=== PATIENT | male | born 1960 ===

== ENCOUNTER 2021-12-21 19:18 | Inpatient (IN) | payer OTHER ==
[~2021-12-21 19:18] MED LIST: Iopamidol 370 76% 100 ML VIAL ONE
[2021-12-21] MEDS ORDERED: Lidocaine 1% (PF) 30 ML VIAL ONE (19:25)
[2021-12-21] MEDS ORDERED: Heparin 10,000 UNITS/ 10 ML VIAL ONE (19:25)
[2021-12-21 19:42] LABS: #Basophils 0.1 thou/uL (0.0-0.2); #Eosinphils 0.1 thou/uL (0.0-0.7); #Lymphocytes 2.5 thou/uL (1.20-3.40); #Monocytes 0.6 thou/uL (0.11-0.59); #Neutrophils 2.5 thou/uL (1.40-6.50); %Basophils 1.3 % (0.0-1.0); %Eosinophils 2.2 % (0.0-10.0); %Lymphocytes 42.8 % (21.0-51.0); %Monocytes 10.1 % (0.0-10.0); %Neutrophils 43.6 % (42.0-75.0); Hemoglobin 13.3 g/dL (14.0-18.0); Mean Corpuscular HGB CONC 35.3 g/dL (32.0-36.0); Mean Corpuscular Hemoglobin 33.1 pg (27.0-31.0); Mean Corpuscular Volume 93.8 fL (78.0-98.0); Mean Platelet Volume 6.4 fL (7.4-10.4); Platelet Count 244 thou/uL (130-400); RBC Distribution Width 12.1 % (11.5-14.5); Red Blood Cell (RBC) Count 4.01 mill/uL (4.70-6.10); White Blood Cell (WBC) Count 5.8 thou/uL (4.8-10.8)
[2021-12-21] MEDS ORDERED: Fentanyl 100 MCG/2 ML VIAL ONE (19:49)
[2021-12-21] MEDS ORDERED: Nitroglycerin 100MG/250ML BOT 0 ML ONE (19:55)
[2021-12-21] MEDS ORDERED: Midazolam HCl 2 mg/2 ml Vial ONE (19:58)
[2021-12-21 20:03] LABS: Albumin 4.3 g/dL (3.5-5.0)
[2021-12-21 20:04] LABS: Chloride 107 mmol/L (98-107); Potassium 4.8 mmol/L (3.5-5.1); Sodium 139 mmol/L (136-145)
[2021-12-21 20:05] LABS: Calcium 9.4 mg/dL (7.8-10.44)
[2021-12-21 20:06] LABS: Globulin 3.4 g/dL (2.4-3.5); Glucose 91 mg/dL (70-105); Protein, Total 7.7 g/dL (6.0-8.3)
[2021-12-21 20:07] LABS: Anion Gap 18 mmol/L (10-20); Bilirubin, Total 0.3 mg/dL (0.2-1.2); Carbon Dioxide 19 mmol/L (22-29)
[2021-12-21 20:08] LABS: Alkaline Phosphatase 174 U/L (40-110)
[2021-12-21 20:09] LABS: Calc. Creatinine Clearance 0 mL/min (70-130)
[2021-12-21 20:10] LABS: BUN (Urea Nitrogen) 20 mg/dL (8.4-25.7)
[2021-12-21 20:11] LABS: AST (SGOT) 25 U/L (5-34)
[2021-12-21 20:12] LABS: ALT (SGPT) 16 U/L (8-55)
[2021-12-21] MEDS ORDERED: Morphine 4 MG/ML VIAL ONE (20:14)
[2021-12-21 20:22] LABS: CKMB 3.6 ng/mL (0-6.6)
[2021-12-21 20:31] LABS: SARS-CoV-2 NAA Rapid Test Not Detected (NotDetected)
[2021-12-21] MEDS ORDERED: Sodium Chloride 0.9% 200 ML IV PRN (20:32)
[2021-12-21] MEDS ORDERED: Milk Of Magnesia 30 ML UDCUP PO PRN (20:33)
[2021-12-21] MEDS ORDERED: traMADol HCl 50 MG TAB PO PRN (20:33)
[2021-12-21] MEDS ORDERED: Mag-Al 1200 mg/1200 mg/30 ML UDCUP PO PRN (20:33)
[2021-12-21] MEDS ORDERED: Zolpidem Tartrate 5 MG TAB PO PRN (20:33)
[2021-12-21 20:39] LABS: Prothrombin Time 13.6 sec (12.0-14.7)
[2021-12-21 20:41] LABS: PTT 114.9 sec (22.9-36.1)
[2021-12-21] MEDS ORDERED: Sodium Chloride 0.9% 500 ML IV SCH (20:45)
[2021-12-21] MEDS ORDERED: Clopidogrel Bisulfate 300 MG TAB PO SCH (20:45)
[2021-12-21] MEDS ORDERED: Atorvastatin Calcium 40 MG TAB PO SCH (21:00)
[2021-12-21 21:44] LABS: Troponin I 0.034 ng/mL (< 0.028)
[2021-12-21] MEDS: cloNIDine 0.1 MG TAB PO PRN (22:22)
[2021-12-21] MEDS: Atorvastatin Calcium 40 MG TAB PO SCH (22:34)
[2021-12-21] MEDS: Nitroglycerin 0.4 MG TAB (25 Tab Bottle) SL PRN (22:34)
[2021-12-21] MEDS: Docusate 100 MG CAP PO SCH (22:34)
[2021-12-22] MEDS: Morphine 2 MG/ML VIAL SLOW IVP PRN ×2 (00:44→19:40)
[2021-12-22] MEDS: Ondansetron PF 4 MG/2 ML Vial IVP PRN (02:24)
[2021-12-22 04:04] LABS: ALT (SGPT) 14 U/L (8-55); AST (SGOT) 19 U/L (5-34); Alkaline Phosphatase 157 U/L (40-110); Anion Gap 13 mmol/L (10-20); BUN (Urea Nitrogen) 17 mg/dL (8.4-25.7); Bilirubin, Total 0.3 mg/dL (0.2-1.2); Calc. Creatinine Clearance 113 mL/min (70-130); Calcium 9.3 mg/dL (7.8-10.44); Carbon Dioxide 22 mmol/L (22-29); Chloride 106 mmol/L (98-107); Globulin 3.2 g/dL (2.4-3.5); Glucose 111 mg/dL (70-105); Potassium 4.3 mmol/L (3.5-5.1); Protein, Total 7.2 g/dL (6.0-8.3); Sodium 137 mmol/L (136-145)
[2021-12-22 04:07] LABS: CKMB 3.3 ng/mL (0-6.6); Troponin I 0.031 ng/mL (< 0.028)
[2021-12-22] MEDS: Acetaminophen/Codeine 30-300mg Tablet PO PRN ×3 (04:36→22:38)
[2021-12-22 05:12] VITALS: BMI 39.6
[2021-12-22] MEDS: Carvedilol 3.125 MG TAB PO SCH ×2 (07:41→17:44)
[2021-12-22] MEDS: cloNIDine 0.1 MG TAB PO PRN (07:41)
[2021-12-22] MEDS ORDERED: Carvedilol 3.125 MG TAB PO SCH (08:00)
[2021-12-22 08:15] LABS: #Eosinphils 0.1 thou/uL (0.0-0.7); #Lymphocytes 1.8 thou/uL (1.20-3.40); #Monocytes 0.6 thou/uL (0.11-0.59); #Neutrophils 3.5 thou/uL (1.40-6.50); %Basophils 0.5 % (0.0-1.0); %Eosinophils 1.4 % (0.0-10.0); %Lymphocytes 29.7 % (21.0-51.0); %Monocytes 9.2 % (0.0-10.0); %Neutrophils 59.1 % (42.0-75.0); Hemoglobin 13.3 g/dL (14.0-18.0); Mean Corpuscular HGB CONC 32.7 g/dL (32.0-36.0); Mean Corpuscular Hemoglobin 31.5 pg (27.0-31.0); Mean Corpuscular Volume 96.5 fL (78.0-98.0); Mean Platelet Volume 6.2 fL (7.4-10.4); Platelet Count 194 thou/uL (130-400); Red Blood Cell (RBC) Count 4.22 mill/uL (4.70-6.10)
[2021-12-22] MEDS ORDERED: Lisinopril 2.5 MG TAB PO SCH (09:00)
[2021-12-22] MEDS ORDERED: Clopidogrel Bisulfate 75 MG TAB PO SCH (09:00)
[2021-12-22] MEDS: Enoxaparin Sodium 40 MG/0.4 ML SYRINGE SC SCH (09:20)
[2021-12-22] MEDS: Amlodipine 10 MG TAB PO SCH (09:20)
[2021-12-22] MEDS: Aspirin Chewable 81 MG TAB PO SCH (09:20)
[2021-12-22] MEDS: Docusate 100 MG CAP PO SCH ×2 (09:21→21:26)
[2021-12-22] MEDS: Allopurinol 300 MG TAB PO SCH (09:21)
[2021-12-22] MEDS: Nitroglycerin 0.4 MG TAB (25 Tab Bottle) SL PRN (19:31)
[2021-12-22] MEDS: Atorvastatin Calcium 40 MG TAB PO SCH (21:26)
[2021-12-23] MEDS: Morphine 2 MG/ML VIAL SLOW IVP PRN ×3 (02:33→18:40)
[2021-12-23 04:35] LABS: #Eosinphils 0.1 thou/uL (0.0-0.7); #Lymphocytes 1.8 thou/uL (1.20-3.40); #Monocytes 0.5 thou/uL (0.11-0.59); #Neutrophils 2.2 thou/uL (1.40-6.50); %Basophils 0.6 % (0.0-1.0); %Eosinophils 2.3 % (0.0-10.0); %Lymphocytes 38.6 % (21.0-51.0); %Neutrophils 47.5 % (42.0-75.0); Mean Corpuscular Hemoglobin 32.3 pg (27.0-31.0); Mean Corpuscular Volume 94.9 fL (78.0-98.0); Mean Platelet Volume 6.3 fL (7.4-10.4); Platelet Count 184 thou/uL (130-400); RBC Distribution Width 11.9 % (11.5-14.5); Red Blood Cell (RBC) Count 3.71 mill/uL (4.70-6.10); White Blood Cell (WBC) Count 4.7 thou/uL (4.8-10.8)
[2021-12-23 04:59] LABS: ALT (SGPT) 13 U/L (8-55); AST (SGOT) 15 U/L (5-34); Albumin 3.6 g/dL (3.5-5.0); Alkaline Phosphatase 142 U/L (40-110); Anion Gap 12 mmol/L (10-20); BUN (Urea Nitrogen) 18 mg/dL (8.4-25.7); Bilirubin, Total 0.4 mg/dL (0.2-1.2); Calc. Creatinine Clearance 104 mL/min (70-130); Calcium 8.8 mg/dL (7.8-10.44); Carbon Dioxide 25 mmol/L (22-29); Chloride 104 mmol/L (98-107); Globulin 2.7 g/dL (2.4-3.5); Glucose 88 mg/dL (70-105); Potassium 4.1 mmol/L (3.5-5.1); Protein, Total 6.3 g/dL (6.0-8.3); Sodium 137 mmol/L (136-145)
[2021-12-23] MEDS: Acetaminophen/Codeine 30-300mg Tablet PO PRN ×2 (07:35→20:36)
[2021-12-23] MEDS: Enoxaparin Sodium 40 MG/0.4 ML SYRINGE SC SCH (08:57)
[2021-12-23] MEDS: Allopurinol 300 MG TAB PO SCH (08:57)
[2021-12-23] MEDS: Docusate 100 MG CAP PO SCH ×2 (08:57→20:36)
[2021-12-23] MEDS: Aspirin Chewable 81 MG TAB PO SCH (08:57)
[2021-12-23] MEDS: Amlodipine 10 MG TAB PO SCH (08:57)
[2021-12-23] MEDS: Carvedilol 3.125 MG TAB PO SCH ×2 (08:57→16:18)
[2021-12-23 11:59] LABS: Bacteria/HPF None Seen HPF (None Seen); Bilirubin Negative (Negative); Blood, Urine Negative (Negative); Clarity Clear (Clear); Glucose, Urine (Dipstick) Normal (Negative); Ketone, Urine Negative (Negative); Leukocyte Negative Leu/uL (Negative); Nitrite Negative (Negative); Protein, Urine (Dipstick) Negative (Neg-Trace); RBC/HPF 0-3 HPF (0-3); Specific Gravity, Urine 1.019 (1.002-1.036); Squamous Epithelial None Seen HPF (0-3); Urobilinogen Normal mg/dL (Less than 2); WBC/HPF 0-3 HPF (0-3)
[2021-12-23 12:01] LABS: Urine Culture Reflex No No
[2021-12-23 12:06] LABS: Lactic Acid 1.3 mmol/L (0.5-2.2)
[2021-12-23 12:16] LABS: Iron 75 ug/dL (65-175); Iron Binding Capacity, Total 298 mcg/dL (261-462); Lipase 27 U/L (8-78)
[2021-12-23] MEDS: Dicyclomine 20 MG TAB PO SCH ×3 (12:19→20:36)
[2021-12-23] MEDS: Atorvastatin Calcium 40 MG TAB PO SCH (20:36)
[2021-12-24 04:49] LABS: #Eosinphils 0.1 thou/uL (0.0-0.7); #Lymphocytes 2.1 thou/uL (1.20-3.40); #Monocytes 0.6 thou/uL (0.11-0.59); %Basophils 0.7 % (0.0-1.0); %Eosinophils 2.9 % (0.0-10.0); %Lymphocytes 43.1 % (21.0-51.0); %Monocytes 11.6 % (0.0-10.0); %Neutrophils 41.7 % (42.0-75.0); Hemoglobin 11.9 g/dL (14.0-18.0); Mean Corpuscular HGB CONC 34.3 g/dL (32.0-36.0); Mean Corpuscular Hemoglobin 32.4 pg (27.0-31.0); Mean Corpuscular Volume 94.3 fL (78.0-98.0); Mean Platelet Volume 6.3 fL (7.4-10.4); Platelet Count 181 thou/uL (130-400); RBC Distribution Width 11.9 % (11.5-14.5); Red Blood Cell (RBC) Count 3.69 mill/uL (4.70-6.10); White Blood Cell (WBC) Count 4.9 thou/uL (4.8-10.8)
[2021-12-24 05:09] LABS: ALT (SGPT) 11 U/L (8-55); AST (SGOT) 14 U/L (5-34); Albumin 3.7 g/dL (3.5-5.0); Alkaline Phosphatase 138 U/L (40-110); Anion Gap 10 mmol/L (10-20); BUN (Urea Nitrogen) 18 mg/dL (8.4-25.7); Bilirubin, Total 0.3 mg/dL (0.2-1.2); Calc. Creatinine Clearance 102 mL/min (70-130); Calcium 9.1 mg/dL (7.8-10.44); Carbon Dioxide 26 mmol/L (22-29); Chloride 104 mmol/L (98-107); Globulin 2.8 g/dL (2.4-3.5); Glucose 88 mg/dL (70-105); Potassium 4.2 mmol/L (3.5-5.1); Protein, Total 6.5 g/dL (6.0-8.3); Sodium 136 mmol/L (136-145)
[2021-12-24] MEDS: Acetaminophen/Codeine 30-300mg Tablet PO PRN ×5 (06:26→22:00)
[2021-12-24] MEDS: Enoxaparin Sodium 40 MG/0.4 ML SYRINGE SC SCH (08:48)
[2021-12-24] MEDS: Carvedilol 3.125 MG TAB PO SCH ×2 (08:49→17:43)
[2021-12-24] MEDS: Allopurinol 300 MG TAB PO SCH (08:49)
[2021-12-24] MEDS: Aspirin Chewable 81 MG TAB PO SCH (08:49)
[2021-12-24] MEDS: Amlodipine 10 MG TAB PO SCH (08:49)
[2021-12-24] MEDS: Dicyclomine 20 MG TAB PO SCH ×4 (08:50→20:33)
[2021-12-24] MEDS: Docusate 100 MG CAP PO SCH ×2 (08:50→21:56)
[2021-12-24] MEDS ORDERED: Iopamidol-370 76% 500 ML 1 ML ONE (10:50)
[2021-12-24] MEDS ORDERED: GASTROGRAFIN 30 ML BOT ONE (10:50)
[2021-12-24] MEDS: Atorvastatin Calcium 40 MG TAB PO SCH (20:33)
[2021-12-24] MEDS: Morphine 2 MG/ML VIAL SLOW IVP PRN (20:34)
[2021-12-25 04:57] LABS: #Eosinphils 0.1 thou/uL (0.0-0.7); #Lymphocytes 1.7 thou/uL (1.20-3.40); #Monocytes 0.5 thou/uL (0.11-0.59); %Basophils 0.6 % (0.0-1.0); %Eosinophils 2.7 % (0.0-10.0); %Lymphocytes 32.1 % (21.0-51.0); %Neutrophils 54.6 % (42.0-75.0); Hemoglobin 12.3 g/dL (14.0-18.0); Mean Corpuscular HGB CONC 33.7 g/dL (32.0-36.0); Mean Platelet Volume 6.1 fL (7.4-10.4); Platelet Count 203 thou/uL (130-400); Red Blood Cell (RBC) Count 3.83 mill/uL (4.70-6.10); White Blood Cell (WBC) Count 5.4 thou/uL (4.8-10.8)
[2021-12-25 05:30] LABS: ALT (SGPT) 17 U/L (8-55); AST (SGOT) 20 U/L (5-34); Albumin 4.1 g/dL (3.5-5.0); Alkaline Phosphatase 150 U/L (40-110); Anion Gap 11 mmol/L (10-20); BUN (Urea Nitrogen) 18 mg/dL (8.4-25.7); Bilirubin, Total 0.4 mg/dL (0.2-1.2); Calc. Creatinine Clearance 95 mL/min (70-130); Calcium 9.7 mg/dL (7.8-10.44); Carbon Dioxide 26 mmol/L (22-29); Chloride 102 mmol/L (98-107); Glucose 118 mg/dL (70-105); Potassium 3.9 mmol/L (3.5-5.1); Protein, Total 7.1 g/dL (6.0-8.3); Sodium 135 mmol/L (136-145)
[2021-12-25] MEDS: Docusate 100 MG CAP PO SCH ×2 (08:52→20:48)
[2021-12-25] MEDS: Amlodipine 10 MG TAB PO SCH (08:52)
[2021-12-25] MEDS: Allopurinol 300 MG TAB PO SCH (08:53)
[2021-12-25] MEDS: Dicyclomine 20 MG TAB PO SCH ×4 (08:53→20:48)
[2021-12-25] MEDS: Aspirin Chewable 81 MG TAB PO SCH (08:53)
[2021-12-25] MEDS: Carvedilol 3.125 MG TAB PO SCH ×2 (08:53→16:42)
[2021-12-25] MEDS: Morphine 2 MG/ML VIAL SLOW IVP PRN ×3 (08:54→20:48)
[2021-12-25] MEDS: Enoxaparin Sodium 40 MG/0.4 ML SYRINGE SC SCH (08:54)
[2021-12-25] MEDS: Ondansetron PF 4 MG/2 ML Vial IVP PRN (08:55)
[2021-12-25] MEDS ORDERED: Lidocaine 1% PF 5 ML VIAL ONE (12:42)
[2021-12-25] MEDS ORDERED: Succinylcholine 200 MG/10 ml SYRINGE FS ONE (12:42)
[2021-12-25] MEDS ORDERED: PROPOFOL 200 MG/20 ML VIAL ONE (12:42)
[2021-12-25] MEDS ORDERED: Ondansetron PF 4 MG/2 ML Vial ONE ×2 (13:35→13:36)
[2021-12-25] MEDS: Atorvastatin Calcium 40 MG TAB PO SCH (20:48)
[2021-12-25] MEDS: Acetaminophen/Codeine 30-300mg Tablet PO PRN (23:49)
[2021-12-26] MEDS: Morphine 2 MG/ML VIAL SLOW IVP PRN (00:53)
[2021-12-26 05:11] LABS: #Basophils 0.1 thou/uL (0.0-0.2); #Eosinphils 0.1 thou/uL (0.0-0.7); #Lymphocytes 1.5 thou/uL (1.20-3.40); #Monocytes 0.6 thou/uL (0.11-0.59); #Neutrophils 3.4 thou/uL (1.40-6.50); %Eosinophils 2.1 % (0.0-10.0); %Lymphocytes 26.6 % (21.0-51.0); %Monocytes 10.6 % (0.0-10.0); %Neutrophils 59.7 % (42.0-75.0); Hemoglobin 11.7 g/dL (14.0-18.0); Mean Corpuscular HGB CONC 34.7 g/dL (32.0-36.0); Mean Corpuscular Hemoglobin 32.9 pg (27.0-31.0); Mean Corpuscular Volume 94.8 fL (78.0-98.0); Mean Platelet Volume 6.5 fL (7.4-10.4); Platelet Count 191 thou/uL (130-400); Red Blood Cell (RBC) Count 3.57 mill/uL (4.70-6.10); White Blood Cell (WBC) Count 5.8 thou/uL (4.8-10.8)
[2021-12-26 05:30] LABS: ALT (SGPT) 22 U/L (8-55); AST (SGOT) 27 U/L (5-34); Alkaline Phosphatase 143 U/L (40-110); Anion Gap 13 mmol/L (10-20); BUN (Urea Nitrogen) 19 mg/dL (8.4-25.7); Bilirubin, Total 0.6 mg/dL (0.2-1.2); Calc. Creatinine Clearance 94 mL/min (70-130); Calcium 9.1 mg/dL (7.8-10.44); Carbon Dioxide 26 mmol/L (22-29); Chloride 99 mmol/L (98-107); Glucose 95 mg/dL (70-105); Potassium 4.1 mmol/L (3.5-5.1); Sodium 134 mmol/L (136-145)
[2021-12-26] MEDS: Enoxaparin Sodium 40 MG/0.4 ML SYRINGE SC SCH (09:01)
[2021-12-26] MEDS: Aspirin Chewable 81 MG TAB PO SCH (09:02)
[2021-12-26] MEDS: Docusate 100 MG CAP PO SCH (09:05)
[2021-12-26] MEDS: Carvedilol 3.125 MG TAB PO SCH ×2 (09:06→17:37)
[2021-12-26] MEDS: Dicyclomine 20 MG TAB PO SCH ×3 (09:07→17:37)
[2021-12-26] MEDS: Amlodipine 10 MG TAB PO SCH (09:07)
[2021-12-26] MEDS: Allopurinol 300 MG TAB PO SCH (09:07)
[2021-12-26] MEDS: Acetaminophen/Codeine 30-300mg Tablet PO PRN (09:07)
[2021-12-26 15:33] VITALS: BP 132/87; TEMP 98
== END 2021-12-26 18:00 | disposition home or self-care (01) | DRG 287 ==
LOC: ERS 19:18 → SDC/OP 19:36 → CCU 20:01 → EEVIPCON 20:01 → 2NO 12-22 14:19
PROVIDERS: ADMIT Internal Medicine Cardiovascular Disease; ATTEND Hospitalist
PROC: 4A023N7 Measurement of Cardiac Sampling and Pressure, Left Heart, Percutaneous Approach (ICD-10-PCS; 2021-12-21)
PROC: B2111ZZ Fluoroscopy of Multiple Coronary Arteries using Low Osmolar Contrast (ICD-10-PCS; 2021-12-21)
PROC: B2131ZZ Fluoroscopy of Multiple Coronary Artery Bypass Grafts using Low Osmolar Contrast (ICD-10-PCS; 2021-12-21)
PROC: 0DJ08ZZ Inspection of Upper Intestinal Tract, Via Natural or Artificial Opening Endoscopic (ICD-10-PCS; principal; 2021-12-25)
PROC: 0DH67UZ Insertion of Feeding Device into Stomach, Via Natural or Artificial Opening (ICD-10-PCS; 2021-12-26)
DX: I25.710 Atherosclerosis of autologous vein coronary artery bypass graft(s) with unstable angina pectoris (principal); Z68.41 Body mass index [BMI] 40.0-44.9, adult; K92.0 Hematemesis; T82.855A Stenosis of coronary artery stent, initial encounter; M10.9 Gout, unspecified; E78.5 Hyperlipidemia, unspecified; E11.9 Type 2 diabetes mellitus without complications; I10 Essential (primary) hypertension; L20.9 Atopic dermatitis, unspecified; K21.9 Gastro-esophageal reflux disease without esophagitis; G47.30 Sleep apnea, unspecified; R10.9 Unspecified abdominal pain; E66.01 Morbid (severe) obesity due to excess calories; G47.33 Obstructive sleep apnea (adult) (pediatric); Y83.8 Other surgical procedures as the cause of abnormal reaction of the patient, or of later complication, without mention of misadventure at the time of the procedure; R94.31 Abnormal electrocardiogram [ECG] [EKG]; R14.0 Abdominal distension (gaseous); Z20.822 Contact with and (suspected) exposure to COVID-19; Z95.5 Presence of coronary angioplasty implant and graft; I25.2 Old myocardial infarction; Z88.0 Allergy status to penicillin; Z87.891 Personal history of nicotine dependence; Z79.82 Long term (current) use of aspirin; Z79.899 Other long term (current) drug therapy; Z88.1 Allergy status to other antibiotic agents; Z88.8 Allergy status to other drugs, medicaments and biological substances; Z91.09 Other allergy status, other than to drugs and biological substances; Z95.1 Presence of aortocoronary bypass graft
CPT/HCPCS: 36415; 71045; 74018; 74176; 74177; 76705; 80053; 81001; 82533; 82550; 82553; 82728; 83540; 83550; 83605; 83690; 83880; 84443; 84484; 85025; 85347; 85610; 85730; 93005; 93010; 93306; 93455; 94760; J1644; J1650; J2001; J2250; J2270; J2405; J2704; J3010; J7030; Q9963; Q9967; U0002